=== PATIENT | female | born 1975 | race Caucasian/White ===

== ENCOUNTER 2018-12-28 12:02 | Emergency (ER) | payer BC ==
--- OUTSIDE RECORDS SUMMARY | 2018-12-28 12:09 | XMS REPORT | Continuity of Care Document ---
:1975 External Reference #:[id number] Author Name Hemanth Neff M.D. Address [address] [place] [address] Care Team Providers Name Role Phone Rohith Jeronimo MD Care Team Information [employer] Secretary Unavailable Rohith Jeronimo MD Primary Care Physician Unavailable Payers Date Identification Numbers Payment Provider Subscriber Effective: 2004 Policy Number: [id number] MARIEL/EVI [facility] [employer] [place] PayID: [id number] [address] [address] [place] [address] Family History Date Family Member(s) Observation Comments General Coloboma brother Father Diabetes Father due to Diabetes () Mother High BP Mother Glasses Social History Type Date Description Comments Sex Unknown ETOH Use Occasionally consumes alcohol Tobacco Use Start: Unknown Patient has never smoked Smoking Status Reviewed: 12/27/18 Patient has never smoked Medications Active Medications SIG Qnty Indications Ordering Provider Date Gabapentin Rowan, Lyn 300mg Capsules Hydrocodone-Ibuprofen Unknown 7.5-200mg Tablets Procedures Date Code Description Status 12/27/2018 84834 Ophthalmoscopy Initial Completed 12/27/2018 06629 Eye Exam New Comprehensive Completed 11/05/2009 74464 Ophthalmoscopy Subsequent Completed 11/05/2009 61998 Eye Exam Est Comprehensive Completed 07/02/2009 82850 Eye Exam Est Intermediate Completed 05/30/2009 39506 Eye Exam Est Intermediate Completed 09/29/2007 33328 Ophthalmoscopy Subsequent Completed 09/29/2007 38427 Eye Exam Est Comprehensive Completed 09/20/2007 86197 Ophthalmoscopy Subsequent Completed 09/20/2007 65268 Eye Exam Est Intermediate Completed 09/13/2007 12699 Ophthalmoscopy Subsequent Completed 09/13/2007 87875 Eye Exam Est Comprehensive Completed 09/06/2006 53668 Ophthalmoscopy Subsequent Completed 09/06/2006 83413 Eye Exam Est Intermediate Completed 08/16/2006 12537 Ophthalmoscopy Initial Completed 08/16/2006 53850 Eye Exam New Comprehensive Completed Plan of Treatment 12/27/2018 - Hemanth Neff M.D.L71.8 Other rosaceaFollow up:1 yrH43.811 Vitreous degeneration, right eyeFollow up:1 yr
--- OUTSIDE RECORDS SUMMARY | 2018-12-28 12:09 | XMS REPORT | Continuity of Care Document ---
:1975 External Reference #:[id number] Author Name BRANDON Nascimento Address [address] [place] [address] Care Team Providers Name Role Phone Kitty Marin Care Team Information Log Data Technician Unavailable Kitty Marin Primary Care Physician Unavailable Payers Date Identification Numbers Payment Provider Subscriber Effective: 2018 Policy Number: [id number] [facility] Expires: 2018 PayID: [id number] [address] [address] [place] [address] Policy Number: [id number] Medicaid [place] PayID: [id number] [address] [facility] [place] [address] Policy Number: [id number] Insurance Change Nayeli Tadeo Group Name: MARIEL/EVI [place] PayID: [id number] Advance Directives Description No Information Available Problems Active Problems Provider Date Adjustment disorder with depressed mood Kitty Marin M.D. 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 Onset: 10/10/2012 Family History Date Family Member(s) Observation Comments General Diabetes Mellitus, II several members of dad's family. General no fam hx colon, breast CA. Father 62, uncontrolled diabetic in a coma. 03/2012. Mother HTN. Psoriasis Number of Siblings Siblings: 7 . 1 brother - CP, legally blind, thyroid. Paternal Grandfather due to Diabetes () Paternal Grandmother due to Diabetes () Maternal Grandfather mesothelioma. worked for [employer]. May 2012. Maternal Grandmother [place], alzheimers. sep 2012. Social History Type Date Description Comments Sex Unknown Education Bachelor's Degree, applied health from [employer]. [employer]. Marital Status Patient has a significant other Living Situation Lives with female partner Occupation [employer]. Occupation [employer]. stocks the [employer]. Tobacco Use Start: Unknown Never Smoked Cigarettes ETOH Use Rare >1 beer a week. Tobacco Use Start: Unknown Patient has never smoked Smoking Status Reviewed: 06/20/18 Patient has never smoked Exercise Type/Frequency Exercises regularly. Current Walks the dog 6 times a week for an hour. hiking. swimming. Seat Belt/Car Seat Always uses a seat belt Allergies, Adverse Reactions, Alerts Active Allergies Reaction Severity Comments Date Sulfa HIVES 01/06/2011 Keflex 06/27/2014 Medications Active Medications SIG Qnty Indications Ordering Provider Date Scopolamine apply to clean dry 4units Lyn 11/28/2018 skin behind ear, Rowan, TEST CLERK 1mg/3Days Patches change every 3 72HR days as needed vertigo Meclizine HCL 1 by mouth three 90tabs Lyn 11/28/2018 times a day as Rowan, TEST CLERK 12.5mg Tablets needed dizziness Physical Therapy evaluate and treat M16.2 Kitty Barnett 06/20/2018 jaymie hip Brendan Marin dysplasia. strengthen core, glutes, hips and quadriceps. copy report to Dr. Askew. Diazepam 1-2 by mouth 1/2 12tabs F43.22 Lyn 06/02/2017 2mg hour prior to Rowan, TEST CLERK Tablets procedure. Gabapentin take one capsule 60caps M54.12 Lyn 06/09/2016 300mg by mouth every Rowan, TEST CLERK Capsules morning and 1 in the evening Hydrocodone-Ibuprof 1 by mouth four 120tabs Kitty Barnett 01/14/2015 en times daily with Brendan Marin 7.5-200mg food in your Tablets stomach. History Medications Vitamin D take 1 capsule by 8caps Kitty Barnett 07/18/2018 - (Ergocalciferol) mouth once weekly Brendan Marin 11/28/2018 [id number] for 8 weeks. Capsules Acetaminophen Extra 1-2 by mouth 90tabs M79.66 Lyn 09/19/2017 - Strength three times daily 2 BRANDON Donahue 11/28/2018 500mg Tablets as needed for pain Prednisone take 3 by mouth 21tabs G51.0 Vero Miller 03/24/2017 - 20mg Tablets as one dose daily Anthony, FITNESS ASSISTANT 06/02/2017 until gone Doxycycline Hyclate Take one by mouth 60tabs G51.0 Vero Miller 03/24/2017 - 100mg twice daily until Anthony, FITNESS ASSISTANT 06/02/2017 Tablets gone Physical Therapy evaluate and G56.03 Kitty Barnett 01/17/2017 - treat jaymie carpal Brendan Marin 06/02/2017 tunnel syndrome. Diazepam 1-2 by mouth 1/2 4tabs Kitty Barnett 12/16/2016 - 2mg Tablets hour prior to Brendan Marin 12/17/2016 procedure. Doxycycline Hyclate 2 by mouth x 1 2caps S70.26 Karen 11/09/2016 - 100mg 1A Jaleesa, 11/10/2016 Capsules Afnp-C Ciclopirox Apply to affected 30gm Martita Barton 01/09/2016 - 0.77% Gel area twice daily FITNESS ASSISTANT 02/21/2016 until clear Ketoconazole apply twice daily 5gm Kitty Barnett 01/08/2016 - Powder to affected area. Brendan Marin 01/09/2016 Ketoconazole apply thin layer 60units B35.6 Kitty Barnett 12/25/2015 - 2% Cream to inguinal area Brendan Marin 01/09/2016 two times a day Lorazepam take one-half or 30tabs Kitty Barnett 12/15/2015 - 1mg Tablets one tablet by Brendan Marin 02/21/2016 mouth at hs for sleep. Vitamin D take 1 capsule by Alfredcapdeon Barnett 11/19/2015 - (Ergocalciferol) mouth once weekly Brendan Marin 11/08/2016 [id number] for 12 weeks. Capsules Hydrocodone-Ibuprofen 1 by mouth 5 150tabs M25.56 Kitty Barnett 03/18/2015 - times daily #one 9 Brendan Marin 08/18/2015 5-200mg Tablets hundred fifty pudt Physical Therapy evaluate and 724.1 Kitty Barnett 01/09/2015 - treat thoracic Brendan Marin 11/19/2015 and lumbosacral back pain 724.2 Cyclobenzaprine HCL 1-2 by mouth at 60tabs 724.1 Kendy Hernández, 12/06/2014 - 5mg bedtime as TEST CLERK 01/09/2015 Tablets needed Alprazolam 1 twice a day 20tabs 300.00 Kitty Barnett 12/06/2014 - 0.25mg Tablets as needed Brendan Marin 03/18/2015 anxiety pudt Tramadol HCL 1-2 by mouth 60tabs Kitty Barnett 06/27/2014 - 50mg Tablets daily as needed Brendan Marin 01/09/2015 pain. Lorazepam 1 po at hs 30tabs 309.0 Kitty Barnett 04/26/2011 - 0.5mg Tablets Brendan Marin 01/20/2012 Hydrocodone/Acetaminoph 1 by mouth four 240tabs 719.46 Kitty Barnett 2010 - en times a day Brendan Marin 01/14/2015 10-325mg Tablets code d chronic pain pu dt Hydrocodone/Acetaminoph take 1 q6hr 120tabs Unknown - en prn pain 04/26/2011 10-325mg Tablets dt Lyrica 1 po tid 90caps Unknown - 75mg Capsules 01/20/2012 Concerta 1 qd 30tabs Unknown - 54mg Tablets ER 10/10/2012 disp thirty Ritalin 1 po prn 90tabs Unknown - 10mg Tablets 10/10/2012 Hyomax-SR 1 po qd prn for Unknown - 0.375mg Tablets ibs 10/10/2012 ER 12HR Multivitamins 1 po qd Unknown - Capsules 01/09/2015 Immunizations CPT Code Status Date Vaccine Lot # [id number] Given 11/19/2015 Tdap Tetanus, W Pertussis [id number] Vital Signs Date Vital Result Comment 11/28/2018 11:14am BP Systolic 120 mmHg BP Diastolic 70 mmHg Heart Rate 82 /min Body Temperature 98.6 F Respiratory Rate 20 /min Height 62 inches 5'2" Weight 182.00 lb BMI (Body Mass Index) 33.3 kg/m2 06/20/2018 9:12am BP Systolic 118 mmHg BP Diastolic 84 mmHg Heart Rate 72 /min Body Temperature 98.8 F Respiratory Rate 16 /min Height 61.5 inches 5'1.50" Weight 166.00 lb BMI (Body Mass Index) 30.9 kg/m2 12/21/2017 1:39pm BP Systolic 100 mmHg BP Diastolic 60 mmHg Heart Rate 76 /min Body Temperature 99.5 F Respiratory Rate 16 /min Weight 166.00 lb 09/19/2017 11:39am BP Systolic 116 mmHg BP Diastolic 72 mmHg Heart Rate 66 /min Body Temperature 99.1 F Respiratory Rate 16 /min Weight 162.25 lb 06/02/2017 3:55pm BP Systolic 120 mmHg BP Diastolic 70 mmHg Heart Rate 60 /min Body Temperature 98.6 F Respiratory Rate 16 /min Weight 166.00 lb 03/24/2017 8:10am BP Systolic 128 mmHg BP Diastolic 88 mmHg Heart Rate 72 /min Body Temperature 99.0 F Height 61.75 inches 5'1.75" Weight 165.25 lb BMI (Body Mass Index) 30.5 kg/m2 01/17/2017 10:50am BP Systolic 116 mmHg BP Diastolic 60 mmHg Heart Rate 66 /min Body Temperature 98.8 F Respiratory Rate 16 /min Height 61.75 inches 5'1.75" Weight 168.00 lb BMI (Body Mass Index) 31.0 kg/m2 11/09/2016 2:02pm BP Systolic 138 mmHg BP Diastolic 88 mmHg Heart Rate 78 /min Body Temperature 98.6 F Height 61.75 inches 5'1.75" Weight 169.50 lb BMI (Body Mass Index) 31.3 kg/m2 06/09/2016 3:02pm BP Systolic 116 mmHg BP Diastolic 68 mmHg Heart Rate 66 /min Body Temperature 97.7 F Respiratory Rate 16 /min Height 61.75 inches 5'1.75" Weight 163.50 lb BMI (Body Mass Index) 30.1 kg/m2 02/21/2016 11:36am BP Systolic 116 mmHg BP Diastolic 66 mmHg Heart Rate 66 /min Body Temperature 98.8 F Respiratory Rate 16 /min Height 61.75 inches 5'1.75" Weight 168.12 lb BMI (Body Mass Index) 31.0 kg/m2 12/25/2015 9:51am BP Systolic 130 mmHg BP Diastolic 82 mmHg Heart Rate 72 /min Body Temperature 99.3 F Height 61.75 inches 5'1.75" Weight 174.00 lb BMI (Body Mass Index) 32.1 kg/m2 11/19/2015 9:10am BP Systolic 128 mmHg BP Diastolic 74 mmHg Heart Rate 72 /min Body Temperature 98.8 F Respiratory Rate 16 /min Height 61.5 inches 5'1.50" Weight 175.00 lb BMI (Body Mass Index) 32.5 kg/m2 03/18/2015 2:02pm BP Systolic 120 mmHg BP Diastolic 70 mmHg Heart Rate 68 /min Body Temperature 99.0 F Respiratory Rate 18 /min Height 61.5 inches 5'1.50" Weight 163.00 lb BMI (Body Mass Index) 30.3 kg/m2 01/09/2015 4:04pm BP Systolic 130 mmHg BP Diastolic 80 mmHg Heart Rate 78 /min Body Temperature 98.9 F Respiratory Rate 16 /min Height 61.5 inches 5'1.50" Weight 165.50 lb BMI (Body Mass Index) 30.8 kg/m2 12/06/2014 1:28pm BP Systolic 120 mmHg BP Diastolic 80 mmHg Heart Rate 68 /min Body Temperature 99.5 F Respiratory Rate 18 /min Height 61.5 inches 5'1.50" Weight 168.00 lb BMI (Body Mass Index) 31.2 kg/m2 06/27/2014 11:10am BP Systolic 130 mmHg BP Diastolic 74 mmHg Heart Rate 66 /min Body Temperature 98.3 F Respiratory Rate 18 /min Height 61.5 inches 5'1.50" Weight 165.00 lb BMI (Body Mass Index) 30.7 kg/m2 08/27/2013 6:35pm BP Systolic 140 mmHg BP Diastolic 74 mmHg Heart Rate 66 /min Body Temperature 99.0 F Respiratory Rate 16 /min Height 61.5 inches 5'1.50" measured Weight 179.12 lb BMI (Body Mass Index) 33.3 kg/m2 02/26/2013 6:58pm BP Systolic 126 mmHg BP Diastolic 76 mmHg Heart Rate 72 /min Body Temperature 99.5 F Respiratory Rate 16 /min Height 61.5 inches 5'1.50" measured Weight 170.12 lb BMI (Body Mass Index) 31.6 kg/m2 10/10/2012 2:26pm BP Systolic 126 mmHg BP Diastolic 86 mmHg Heart Rate 84 /min Body Temperature 100.3 F Respiratory Rate 16 /min Height 61.5 inches 5'1.50" measured Weight 158.25 lb BMI (Body Mass Index) 29.4 kg/m2 Right Visual Acuity Distance 20/20 Left Visual Acuity Distance 20/20 01/20/2012 11:31am BP Systolic 110 mmHg BP Diastolic 70 mmHg Heart Rate 68 /min Body Temperature 99.0 F Height 61.25 inches 5'1.25" Weight 124.00 lb BMI (Body Mass Index) 23.2 kg/m2 04/26/2011 7:04pm BP Systolic 120 mmHg BP Diastolic 60 mmHg Heart Rate 64 /min Body Temperature 97.9 F Respiratory Rate 20 /min Height 61.25 inches 5'1.25" Weight 125.00 lb BMI (Body Mass Index) 23.4 kg/m2 03/29/2011 6:57pm BP Systolic 130 mmHg BP Diastolic 84 mmHg Heart Rate 72 /min Body Temperature 99.0 F Height 61.25 inches 5'1.25" Weight 124.00 lb BMI (Body Mass Index) 23.2 kg/m2 Right Visual Acuity Distance 20/20 Left Visual Acuity Distance 20/20 01/06/2011 10:16am BP Systolic 108 mmHg BP Diastolic 70 mmHg Heart Rate 72 /min Body Temperature 99.6 F Respiratory Rate 12 /min Height 61.25 inches 5'1.25" Weight 128.00 lb BMI (Body Mass Index) 24.0 kg/m2 Results Test Date Facility Test Result H/L Range Note Laboratory test 07/04/2018 Sergio Verma Vitamin D25 16 Low 30-100 finding Comprehensive 07/04/2018 Sergio Verma Sodium 138 mEq/L 134-149 Metabolic Prof Potassium 4.7 mEq/L 3.6-5.5 Chloride 107 mEq/L 94-112 Carbon Dioxide 28 mEq/L 21-32 Glucose 114 mg/dL High 70-105 BUN 16 mg/dL 6-26 Creatinine 0.8 mg/dL 0.6-1.4 BUN/Creat Ratio 20.0 CALC 8.0-36.0 Calcium 9.1 mg/dL 8.6-10.2 Total Protein 6.9 g/dL 6.4-8.3 Albumin 4.8 g/dL 3.8-5.5 Globulin 2.1 g/dL 2.0-4.8 A/G Ratio 2.3 CALC 0.6-2.3 Alk. Phosphatase 61 U/L 30-110 Alt (SGPT) 11 U/L 7-35 Ast (Sgot) 13 U/L 5-34 Total Bilirubin 0.6 mg/dL 0.2-1.3 GFR Non- >60 ml/min/1.73m^ >=60 GFR >60 ml/min/1.73m^ >=60 Lipid Profile 07/04/2018 Sergio Verma Cholesterol 206 mg/dL High 120- 200 Triglycerides 51 mg/dL 30-200 HDL Cholesterol 129 mg/dL High 30-85 LDL (Calculated) 67 CALC 0-129 VLDL Cholesterol 10 mg/dL 0-50 HDL Risk Factor 1.6 CALC 0.0-4.4 CBC Electronic Fma 07/04/2018 Sergio Verma WBC 7.1 x10^3/UL 4.0-10.0 RBC 5.01 x10^6/UL 3.93-6.00 HGB 15.2 g/dL 12.0-17.0 HCT 46 % 35-50 MCV 91.8 fL 80.0-95.0 MCH 30.3 pg 25.6-32.2 MCHC 33.0 g/dL 32.2-36.0 RDW-CV 13.4 % 11.6-14.4 PLT 365 x10^3/UL 163-400 MPV 11.0 fL 9.4-12.4 Vipin# 4.49 x10^3/UL 1.56-6.13 Lymph# 1.79 x10^3/UL 1.18-3.74 Concordia# 0.54 x10^3/UL 0.24-0.82 Eos # 0.1 x10^3/UL 0.0-0.5 Baso # 0.09 x10^3/UL High 0.01-0.08 Vipin% 63.6 % 34.0-70.0 Lymph % 25.4 % 20.0-52.0 Concordia% 7.6 % 5.0-12.0 Eos% 1.8 % 0.7-7.0 Baso% 1.3 % High 0.1-1.2 Laboratory test 07/04/2018 [facility] TSH 3.54 mIU/L 0.50-6.00 finding Lyme, Western Blot, 03/24/2017 [facility] IgG P93 Ab. Absent 1 Serum [address] [place] [address] ([phone] - IgG P66 Ab. Present Abnormal IgG P58 Ab. Absent IgG P45 Ab. Present Abnormal IgG P41 Ab. Present Abnormal IgG P39 Ab. Present Abnormal IgG P30 Ab. Absent IgG P28 Ab. Absent IgG P23 Ab. Present Abnormal IgG P18 Ab. Present Abnormal Lyme IgG WB Interp. Positive Abnormal 2 IgM P41 Ab. Present Abnormal IgM P39 Ab. Present Abnormal IgM P23 Ab. Present Abnormal Lyme IgM WB Interp. Positive Abnormal 3 Pap HPV High Risk 12/25/2015 [facility] Diagn See Comment: 4 [address] [place] [address] [phone] - Adeq See Comment: 5 [email or web address] See Comment: 6 Perfor See Comment: 7 Comm . Note See Comment: 8 Iglbp See Comment: 9 HPV, high-risk Negative Negative 10 Laboratory test 12/25/2015 [facility] PDF [id number] SEE IMAGE finding [address] [place] [address] ([phone] - Lipid Profile 11/19/2015 Sergio Verma Cholesterol 191 mg/dL 120-20 0 Triglycerides 54 mg/dL 30-200 HDL Cholesterol 103 mg/dL High 30-85 11 LDL (Calculated) 77 CALC 0-129 VLDL Cholesterol 11 mg/dL 0-50 HDL Risk Factor 1.9 CALC 0.0-4.4 Laboratory test 11/19/2015 Sergio Verma Vitamin D25 21 Low 30-100 finding Complete Blood Count 11/19/2015 Sergio Verma WBC 8.1 x10^3/UL 3.6-9.6 RBC 4.92 x10^6/UL 3.90-5.70 HGB 14.4 g/dL 12.1-17.2 HCT 44 % 36-50 MCV 89.0 fL 82.2-97.4 MCH 29.4 pg 27.6-33.3 MCHC 33.1 g/dL 33.0-35.5 RDW 13.3 % 11.6-13.7 PLT 370 x10^3/UL 150-400 MPV 8.6 fL 7.4-10.4 Gran # 6.1 x10^3/UL 1.5-7.2 Lymph# 1.7 x10^3/UL 0.7-4.9 Concordia# 0.3 x10^3/UL 0.1-0.9 Gran % 74.1 % 42.2-75.2 Lymph % 22.0 % 20.5-51.1 Concordia% 3.9 % 1.7-9.3 Laboratory test finding 11/19/2015 Sergio Verma TSH 1.60 mIU/L 0.50- 6.00 Free T4 0.96 ng/dL 0.75-1.54 Comprehensive Metabolic Prof 11/19/2015 Sergio Verma Sodium 142 mEq/L 134-149 Potassium 5.2 mEq/L 3.6-5.5 Chloride 102 mEq/L 94-112 Carbon Dioxide 25 mEq/L 21-32 Glucose 102 mg/dL 70-105 BUN 9 mg/dL 6-26 Creatinine 0.7 mg/dL 0.6-1.4 BUN/Creat Ratio 12.9 CALC 8.0-36.0 Calcium 9.5 mg/dL 8.6-10.2 Total Protein 7.2 g/dL 6.4-8.3 Albumin 4.4 g/dL 3.8-5.5 Globulin 2.8 g/dL 2.0-4.8 A/G Ratio 1.6 CALC 0.6-2.3 Alk. Phosphatase 61 U/L 30-110 Alt (SGPT) 11 U/L 7-35 Ast (Sgot) 14 U/L 5-34 Total Bilirubin 0.6 mg/dL 0.2-1.3 GFR Non- >60 ml/min/1.73m^ >=60 GFR >60 ml/min/1.73m^ >=60 Basic Metabolic Profile 06/27/2014 Sergio Verma Sodium 138 mEq/L 134- 149 Potassium 5.4 mEq/L 3.6-5.5 Chloride 100 mEq/L 94-112 Carbon Dioxide 31 mEq/L 21-32 Glucose 98 mg/dL 70-105 BUN 11 mg/dL 6-26 Creatinine 0.7 mg/dL 0.6-1.4 BUN/Creat Ratio 15.7 CALC 8.0-36.0 Calcium 10.4 mg/dL High 8.6-10.2 12 Ua - Non Micro (Fma) 06/27/2014 [facility] Medicine Appearance CLEAR (607)- - Color YELLOW Glucose, Urine (Fma/CMC/CTX) NEG Bilirubin NEG Ketones TRACE # SP Grav 1.015 Blood NEG PH 6.0 Protein NEG Urobil 0.2 Nitrite NEG Leukocytes (Fma/[facility]) NEG Ua - Non Micro (a) 10/10/2012 [facility] Medicine Appearance clear (607)- - Color yellow Glucose - Bilirubin - Ketones - SP Grav 1.020 Blood - PH 5.5 Protein - Urobil 0.2 Nitrite - Leukocytes (Fma/[facility]) - Comprehensive Metabolic Prof 04/24/2011 Sergio Verma Albumin 4.7 g/dL 3.8-5.5 Alk. Phos. 57 U/L 30-110 Alt (SGPT) 8 U/L 7-35 Ast (Sgot) 13 U/L 5-34 BUN 19 mg/dL 6-26 Calcium 9.2 mg/dL 8.6-10.2 Chloride 106 mEq/L 94-112 Creatinine 0.8 mg/dL 0.6-1.4 Carbon Dioxide 26 mEq/L 21-32 Glucose 96 mg/dL 70-105 Sodium 138 mEq/L 134-149 Total Bilirubin 0.3 mg/dL 0.2-1.3 Total Protein 7.2 g/dL 6.3-8.1 Potassium 5.1 mEq/L 3.6-5.5 Globulin 2.5 g/dL 2.0-4.8 A/G Ratio 1.8 Calc 0.6-2.2 BUN/Creat Ratio 23.6 Calc 8.0-36.0 Laboratory test finding 04/24/2011 Sergio Verma TSH 1.61 mIU/L 0.50- 6.00 Free T3 2.63 pg/mL 2.00-4.90 Lipid Profile 04/24/2011 Sergio Verma Cholesterol 192 mg/dL 120-200 HDL 103 mg/dL High 30-85 13 Triglycerides 48 mg/dL 30-200 HDL Risk Factor 1.9 CALC 0.0-4.0 LDL (Calculated) 79 CALC 0-129 VLDL (Calculated) 10 mg/dL 0-50 CBC Electronic ([facility]) 04/24/2011 [facility] WBC 7.3 3.6-9.6 (607)- - RBC 4.89 3.90-5.70 Hemoglobin (Fma/CMC/CTX) 13.9 g/dL 12.1 - 17.2 Hematocrit (Fma/CMC/CTX) 42.1 % 36.1 - 50.3 Platelets 382 10^3/ul 150-400 Lymph% 25.5 20.5-51.1 Mixed% 9.3 Neutrophils % 65.2 Mean Corpuscular Vol 86.1 82.2-97.4 Mean Corpuscular Hemoglobin 28.4 27.6-33.3 Mean Corpuscular Hemo Concen 33.0 32.0-36.0 RDW 14.9 High 11.6-13.7 Mean Platelet Volume 11.8 High 6.5-11.0 Laboratory test 03/29/2011 [facility] Thin Prep SEE NOTE 14 finding 28 [facility] W/HPV(Lsil/JAYCEE/Asc) [place] [address] [phone] Ua - Non Micro 03/29/2011 [facility] Medicine Appearance CLEAR (a) (607)- - Color YELLOW Glucose NEG Bilirubin NEG Ketones NEG SP Grav 1.015 Blood TRACE-LYSED # Menses PH 7.0 Protein NEG Urobil 0.2 Nitrite NEG Leukocytes (Fma/CMC/[facility]) NEG 1 1 sst 2 Positive: 5 of the following Borrelia-specific bands: 18,23,28,30,39,41,45,58, 66, and 93. Negative: No bands or banding patterns which do not meet positive criteria. 3 Note: An equivocal or positive EIA result followed by a negative Western Blot result is considered NEGATIVE. An equivocal or positive EIA result followed by a positive Western Blot is considered POSITIVE by the CDC. Positive: 2 of the following bands: 23,39 or 41 Negative: No bands or banding patterns which do not meet positive criteria. Criteria for positivity are those recommended by CDC/ASTPHLD. p23=Osp C, f31=yyzjbzrfr Note: Sera from individuals with the following may cross react in the Lyme Western Blot assays: other spirochetal diseases (periodontal disease, leptospirosis, relapsing fever, yaws, and pinta); connective autoimmune (Rheumatoid Arthritis and Systemic Lupus Erythematosus and also individuals with Antinuclear Antibody); other infections ([place] Spotted Fever; Devin-Castro Virus, and Cytomegalovirus). 4 NEGATIVE FOR INTRAEPITHELIAL LESION AND MALIGNANCY. 5 Satisfactory for evaluation. Endocervical and/or squamous metaplastic cells (endocervical component) are present. 6 Z12.4 7 Will Vincent, J2Ee Consultant (ASCP) 8 The Pap smear is a screening test designed to aid in the detection of premalignant and malignant conditions of the uterine cervix. It is not a diagnostic procedure and should not be used as the sole means of detecting cervical cancer. Both false-positive and false-negative reports do occur. 9 This liquid based ThinPrep(R) pap test was screened with the use of an image guided system. 10 This high-risk HPV test detects thirteen high-risk types (16/18/31/33/35/39/45/51/52/56/58/59/68) without differentiation. 11 consistent w/ previous results 12 RESULTS VERIFIED BY REPEAT ANALYSIS 13 RESULT [facility]'D 14 [facility] DEPARTMENT OF PATHOLOGY or Extension 8235 GRINDER OPERATOR TOOL CYTOLOGY REPORT PATIENT: SUNSHINE FALCON : 1975 AGE: 35 Y SEX: F ACCT: [id number] PROCEDURE DATE: 03/29/2011 DATE RECEIVED: 03/31/2011 REQUESTING PHYSICIAN: KITTY MARIN MD LOCATION: [facility] Case No. [id number] PATIENT DATA: [id number] SPECIMEN SUBMITTED: * * (HPVII) THIN PREP W/HPV (LSIL/ASC/JAYCEE) * * ENDOCERVICAL RELEVANT HISTORY: LMP: 02/22/2011 Prev.normal: 4 YEARS AGO SPECIMEN ADEQUACY SATISFACTORY FOR EVALUATION, ENDOCERVICAL TRANSFORMATION ZONE COMPONENT PRESENT GENERAL CATEGORIZATION NEGATIVE FOR INTRAEPITHELIAL LESIONS OR MALIGNANCY RECOMMENDATIONS Thin Prep Pap tests are examined with an FDA approved location-guidance system. ADDITIONAL COPIES SENT TO: Screened/Rescreened Electronically Signed Sign Out Date/Time: by: by: SAÚL FLORES, 03/31/2011 14:46 CT(ASCP) The Pap smear is a screening test designed to aid in the detection of premalignant and malignant conditions of the uterine cervix. It is not a diagnostic procedure and should not be used as the sole means of detecting cervical cancer. Both false-positive and false-negative reports do occur. Performed @ [facility] [address] [place] [address] Procedures Date Code Description Status 08/08/2016 25348302 Mammogram Completed 10/10/2012 12299 Vision Test- screening test of visual acuity, Completed quantitative, bila 03/29/2011 82083 Vision Test- screening test of visual acuity, Completed quantitative, bila 08/08/2008 [id number] Colonoscopy Completed Encounters Type Date Location Provider Dx Diagnosis Office Visit 06/20/2018 Main Office Kitty Marin, Z00.00 Encntr for general 9:00a M.D. 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 knee G56.03 Carpal tunnel syndrome, bilateral upper limbs Office Visit 11/09/2016 Main Office Karen S70.261A Insect bite 2:00p Jaleesa, (nonvenomous), right Afnp-C hip, initial encounter W57.xxxA Bit/stung by nonvenom insect & oth nonvenom arthropods, init Office Visit 06/09/2016 3:00p Main Office Kitty Barnett M54.12 Radiculopathy, Omar, M.D. cervical region M25.561 Pain in right knee Office Visit 02/21/2016 11:30a Main Office Karen Lazcano, M25.521 Pain in right Afnp-C elbow Office Visit 12/25/2015 9:40a Main Office Ktity Marin, Z01.419 Encntr for art librarian M.DCabrera exam (general) (routine) w/o abn findings B35.6 Tinea cruris G89.4 Chronic pain syndrome E55.9 Vitamin D deficiency, unspecified Office Visit 11/19/2015 9:00a Main Office Kitty Barnett Z00.01 Encounter for Brendan Marin general adult medical exam w abnormal findings M25.561 Pain in right knee M54.6 Pain in thoracic spine M54.2 Cervicalgia G89.4 Chronic pain syndrome E55.9 Vitamin D deficiency, unspecified E66.3 Overweight Z12.31 Encntr screen mammogram for malignant neoplasm of breast Z23 Encounter for immunization Office Visit 03/18/2015 1:50p [facility] Kitty Barnett 719.46 Pain Edith Marin M.D. Lower Leg Office Visit 01/09/2015 4:00p [facility] Kendy Hernández 724.2 Lumbago TEST CLERK 724.1 Pain Thoracic Spine Office Visit 12/06/2014 1:30p Main Office Kendy Hernández TEST CLERK 724.1 Pain Thoracic Spine 300.00 Anxiety State Unspec Office Visit 06/27/2014 10:40a [facility] Kitty Barnett V70.0 Examination Brendan Marin [facility] Routine [facility] 719.46 Pain Joint Lower Leg 268.9 Vitamin D Deficiency Unspec Office Visit 08/27/2013 6:30p Main Office Kitty Barnett 719.46 Pain Joint Myrtle Marin M.D. Leg Office Visit 02/26/2013 6:50p Main Office Kitty Barnett 719.46 Pain Joint Lower Brendan Marin Leg Office Visit 01/20/2012 10:40a [facility] Kitty Barnett 719.46 Pain Joint Lower Brendan Marin Leg Office Visit 04/26/2011 6:40p Main Office Kitty Barnett 309.0 Adjustment Brendan Marin Disorder With Depression 789.39 Swelling Mass Or Lump Abdominal/Pelvic Other Spec Site 719.46 Pain Joint Lower Leg Office Visit 03/29/2011 7:00p Main Office Kitty Barnett V70.0 Examination General Brendan Marin Medical Routine [facility] V72.31 Routine Senior Lead Project Manager Examination 789.39 Swelling Mass Or Lump Abdominal/Pelvic Other Spec Site 309.0 Adjustment Disorder With Depression 719.46 Pain Joint Lower Leg V72.0 Examination Eyes & Vision Office Visit 01/06/2011 10:00a Main Office Kitty Marin, 719.46 Pain Joint Lower M.D. Leg 558.9 Gastroenteritis & Colitis Noninfectious Other 314.00 Attention Deficit Disorder W/O Mention Of Hyperactivity Plan of Treatment Future Appointment(s):06/01/2019 10:40 am - Kitty Marin M.D. at [facility]11/28/2018 - Lyn Donahue, FNPM25.552 Pain in left hipM25.551 Pain in right hipM79.662 Pain in left lower legN39.46 Mixed nqohzggfmdelR79.3xxA Motion sickness, initial ghdggjvpmT23.3 OverweightAllNew Medication:Scopolamine 1 mg/3Days - apply to clean dry skin behind ear, change every 3 days as needed vertigoMeclizine HCL 12.5 mg - 1 by mouth three times a day as needed dizzinessComments:Medication Management Patient Understands medications he 's taking? Yes No Are there Barriers to Adherence? Yes No Has the patient been asked about herbal supplements and therapies, andOT meds? Yes No As always, we strongly encourage a healthy diet and making physical activity a part of your every day life. If you have questions about how or where to start, please contact the office.Follow up:6 months
[2018-12-28 12:57] VITALS: BP 119/93
--- NOTE | 2018-12-28 13:16 | UC ---
Hand/Wrist HPI - HPI Summary HPI Summary: 43 yo female presents with RIGHT thumb pain. She tells me that yesterday she was tubing at [place] and her right thumb bent backwards. Has had pain in her thumb since that time. Rested and applied some ice with mild relief. She is right handed. No numbness or tingling - History Of Current Complaint Chief Complaint: UCUpperExtremity Stated Complaint: THUMB INJURY Time Seen by Provider: 12/28/18 13:16 Hx Obtained From: Patient Hx Last Menstrual Period: 12/23/18 Onset/Duration: Sudden Onset Severity Initially: Mild Severity Currently: Mild Pain Intensity: 2 Pain Scale Used: 0-10 Numeric - Allergies/Home Medications Allergies/Adverse Reactions: Allergies Allergy/AdvReac Type Severity Reaction Status Date / Time cephalexin [From Keflex] Allergy Hives Verified 12/28/18 12:58 Sulfa (Sulfonamide Allergy Hives Verified 12/28/18 12:58 Antibiotics) Home Medications: Home Medications Gabapentin 1 tab PO DAILY 12/28/18 [History Confirmed 12/28/18] Hydrocodone-Ibuprofen 10-200 1 tab PO DAILY 12/28/18 [History Confirmed 12/28/18 ] PMH/Surg Hx/FS Hx/Imm Hx - Additional Past Medical History Additional PMH: Chronic pain - Surgical History Surgical History: Yes Surgery Procedure, Year, and Place: RIGHT KNEE X5-2 ACL/3 MENISCUS - Family History Known Family History: Positive: Non-Contributory - Social History Occupation: Employed Full-time Lives: With Family Alcohol Use: Occasionally Substance Use Type: None Smoking Status (MU): Never Smoked Tobacco Review of Systems All Other Systems Reviewed And Are Negative: Yes Constitutional: Positive: Negative Skin: Positive: Negative Respiratory: Positive: Negative Cardiovascular: Positive: Negative Musculoskeletal: Positive: Other: - Right thumb pain Neurological: Positive: Negative Psychological: Positive: Negative Physical Exam - Summary Physical Exam Summary: GENERAL: NAD. WDWN. No pain distress. SKIN: No rashes, sores, lesions, or open wounds. CHEST: No accessory muscle use. Breathing comfortably and in no distress. CV: Pulses intact radial and ulnar. Cap refill <2seconds MSK: RIGHT THUMB: Mild TTP at MCP. Decreased ROM during opposition, but intact flexion and extension. NTTP tendons of thumb. No edema or obvious bony deformities. No snuffbox tenderness. NEURO: Alert. Sensations intact hand and all fingers. PSYCH: Age appropriate behavior. Triage Information Reviewed: Yes Vital Signs: Initial Vital Signs Temp 99 F 12/28/18 12:54 Pulse 78 12/28/18 12:54 Resp 16 12/28/18 12:54 BP 119/93 12/28/18 12:54 Pulse Ox 100 12/28/18 12:54 Vital Signs Reviewed: Yes Hand/Wrist Course/Dx - Course Course Of Treatment: XR: REPORT AND IMPRESSION: #. Negative for fracture or malalignment. Minimal polyarticular osteoarthritis. Mild fusiform soft tissue swelling. Suspect sprain/strain of thumb. She was placed in a thumb spica splint for comfort and advised to RICE and take ibuprofen as directed for discomfort. F/u if symptoms do not improve. - Differential Dx/Diagnosis Provider Diagnosis: Thumb sprain Discharge - Sign-Out/Discharge Documenting (check all that apply): Patient Departure All imaging exams completed and their final reports reviewed: Yes - Discharge Plan Condition: Stable Disposition: HOME Patient Education Materials: Lmer's Thumb (ED) Referrals: Kitty Nelson MD [Primary Care Provider] - Additional Instructions: If you develop a fever, shortness of breath, chest pain, new or worsening symptoms - please call your PCP or go to the ED immediately. 1) Rest, Ice, and elevate your hand intermittently throughout the day 2) Use the thumb brace for comfort 3) May take tylenol/ibuprofen as directed for discomfort - Billing Disposition and Condition Condition: STABLE Disposition: Home
== END 2018-12-28 14:35 | disposition home or self-care (01) ==
LOC: UCEAST 12:02
DX: S63.601A Unspecified sprain of right thumb, initial encounter (principal); X50.1XXA Overexertion from prolonged static or awkward postures, initial encounter; Y93.16 Activity, rowing, canoeing, kayaking, rafting and tubing; Y92.9 Unspecified place or not applicable; M15.9 Polyosteoarthritis, unspecified; G89.29 Other chronic pain; Z88.1 Allergy status to other antibiotic agents; Z88.2 Allergy status to sulfonamides
CPT/HCPCS: 99212; G0463